=== PATIENT | male | born 1985 | race Caucasian/White ===

== ENCOUNTER 2021-07-02 08:03 | Emergency (ER) | payer OTHER, BC ==
[2021-07-02 09:53] LABS: CHLORIDE,CL 108 mEq/L (98-106); SODIUM,NA 146 mEq/L (136-145)
[2021-07-02] MEDS: Bacitracin/Neomycin/Polymyxin B Oint 0.9 GM U/D Packet TOP ONE (11:49)
[2021-07-02] MEDS: Diphtheria,Pertussis(Acell),Tetanus Vaccine 0.5 ML Syringe IM ONE (11:49)
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
[2021-07-02 14:15] VITALS: BP 127/88; PULSE 83
== END 2021-07-02 12:00 | disposition home or self-care (01) ==
LOC: CC.ED 08:03
DX: S01.311A Laceration without foreign body of right ear, initial encounter (principal); S01.511A Laceration without foreign body of lip, initial encounter; S00.81XA Abrasion of other part of head, initial encounter; E66.9 Obesity, unspecified; Z68.41 Body mass index [BMI] 40.0-44.9, adult; Z23 Encounter for immunization; Z88.0 Allergy status to penicillin; Z88.1 Allergy status to other antibiotic agents; V69.9XXA Occupant (driver) (passenger) of heavy transport vehicle injured in unspecified traffic accident, initial encounter; Y92.481 Parking lot as the place of occurrence of the external cause
CPT/HCPCS: 12015; 36415; 70450; 72125; 80053; 82150; 83605; 85025; 85610; 90471; 90715; 99284-25

== ENCOUNTER 2021-09-14 12:15 | Emergency (ER) | payer BC, OTHER ==
[~2021-09-14 12:15] MED LIST: Tetracaine HCl/PF 0.5% 4 ML Bottle EYEBOTH ONE
--- NOTE | 2021-09-14 12:32 | EDM.PDOC ---
ED HPI GENERAL MEDICAL PROBLEM - General Chief Complaint: ENT Problem Stated Complaint: something in eye Time Seen by Provider: 09/14/21 12:15 Source of Information: Reports: Patient History Limitations: Reports: No Limitations - History of Present Illness INITIAL COMMENTS - FREE TEXT/NARRATIVE: Patient presents to the Ed for right eye irritation. He was cutting a metal conveyor belt yesterday with his safety glasses on, but felt some eye irritation. He tried to flush it with saline but continued to rub it. No drainage or vision changes. Worried he has something stuck in it. Onset Date: 09/13/21 Location: Reports: Face Right Eye Pain Score (Numeric/FACES): 5 - Related Data Allergies Allergy/AdvReac Type Severity Reaction Status Date / Time amoxicillin Allergy Cannot Verified 09/14/21 12:14 Remember clavulanic acid Allergy Cannot Verified 09/14/21 12:14 [From Augmentin] Remember Home Meds: Home Meds Cholecalciferol (Vitamin D3) [Vitamin D3] 1,000 units PO DAILY 07/28/17 [History] Venlafaxine HCl [Venlafaxine ER] 150 mg PO DAILY 07/28/17 [History] Multivitamin 1 tab PO DAILY 07/02/21 [History] Past Medical History HEENT History: Reports: Allergic Rhinitis Cardiovascular History: Reports: None Respiratory History: Reports: None Gastrointestinal History: Reports: None Musculoskeletal History: Reports: None Neurological History: Reports: None Psychiatric History: Reports: Depression Endocrine/Metabolic History: Reports: Obesity/BMI 30+ Social & Family History - Tobacco Use Tobacco Use Status *Q: Unknown Ever Used Tobacco - Recreational Drug Use Recreational Drug Use: No Drug Use in Last 12 Months: No - Living Situation & Occupation Living situation: Reports: , with Spouse Occupation: Employed ED ROS ENT - Review of Systems Review Of Systems: See Below Constitutional: Reports: No Symptoms. Denies: Fever, Chills, Malaise HEENT: Reports: Eye Pain (irritation of the right eye, n o vision changes), Glasses. Denies: Eye Discharge, Vision Change Respiratory: Reports: No Symptoms Cardiovascular: Reports: No Symptoms Endocrine: Reports: No Symptoms GI/Abdominal: Reports: No Symptoms : Reports: No Symptoms Musculoskeletal: Reports: No Symptoms Skin: Reports: No Symptoms Neurological: Reports: No Symptoms Psychiatric: Reports: No Symptoms ED EXAM, ENT - Physical Exam Exam: See Below Exam Limited By: No Limitations General Appearance: Alert, WD/WN, No Apparent Distress Eye Exam: Right Eye: Conjunctival Injection (more lateral, but entire right with some erythema), Bilateral Eye: Normal Inspection (no periorbital swelling or redness, no drainage), PERRL Nose: Normal Inspection Head: Atraumatic Respiratory/Chest: No Respiratory Distress, Lungs Clear, Normal Breath Sounds Cardiovascular: Normal Peripheral Pulses, Regular Rate, Rhythm, No Edema Course - Vital Signs Last Recorded V/S: Last Vital Signs Temp 36.6 C 09/14/21 12:17 Pulse 80 09/14/21 12:17 Resp 18 09/14/21 12:17 BP 147/96 H 09/14/21 12:17 Pulse Ox 98 09/14/21 12:17 - Orders/Labs/Meds Meds: Medications Discontinued Medications Generic Name Dose Route Start Last Admin Trade Name Freq PRN Reason Stop Dose Admin Tetracaine HCl 1 ml 09/14/21 12:14 09/14/21 12:24 Tetracaine Hcl/Pf 0.5% 4 Ml Bottle EYEBOTH 09/14/21 12:15 1 ml ASDIRECTED ONE Administration - Re-Assessments/Exams Free Text/Narrative Re-Assessment/Exam: 09/14/21 12:20 tetracaine used to anesthetize the right eye. fluorecin stain to the right eye and cobalt blue light used. Injection seen on the entire conjunctiva, worse on the lateral aspect. eyelid everted with a q tip and erythema seen at the lateral margin, no foreign body. Globe intact. 09/14/21 12:38 Patient advised not foreign body seen. Given gentamicin ointment to be placed tid for the next 2-3 days. return to eye doctor if not improving or worsening. Departure - Departure Time of Disposition: 12:26 Disposition: Home, Self-Care 01 Condition: Good Clinical Impression: Eye irritation - Discharge Information *PRESCRIPTION DRUG MONITORING PROGRAM REVIEWED*: Not Applicable *COPY OF PRESCRIPTION DRUG MONITORING REPORT IN PATIENT ISABELLA: Not Applicable Additional Instructions: use a 1/4 to 1/2 inch of gentamicin ointment to the eye three times a day for 2- 3 days. You can stop after that if eye is no longer irritated. You can continue this up to 7 days if needed. Do not rub the eye. You can purchase over the counter gel eye drops and use for comfort Do not use Visine or other red eye drops. See eye doctor for changes in vision. Sepsis Event Note (ED) - Evaluation Sepsis Screening Result: No Definite Risk - Focused Exam Vital Signs: Vital Signs Temp Pulse Resp BP Pulse Ox 09/14/21 12:17 36.6 C 80 18 147/96 H 98
== END 2021-09-14 12:35 | disposition home or self-care (01) ==
LOC: CC.ED 12:15
DX: H57.89 Other specified disorders of eye and adnexa (principal); E66.9 Obesity, unspecified; Z88.0 Allergy status to penicillin; Z68.42 Body mass index [BMI] 45.0-49.9, adult
CPT/HCPCS: 99283